=== PATIENT | male | born 2000 | race African-American/Black ===

== ENCOUNTER 2024-07-26 21:50 | Emergency (ER) | payer OTHER ==
[~2024-07-26] VITALS: Ht 170.2 cm; Wt 93.5 kg
[2024-07-27 03:36] VITALS: BP 120/57; TEMP 98.1; O2SAT 100
== END 2024-07-27 03:40 | disposition home or self-care (01) ==
LOC: M ED 21:50
DX: S93.402A Sprain of unspecified ligament of left ankle, initial encounter (principal); X50.0XXA Overexertion from strenuous movement or load, initial encounter; Z91.013 Allergy to seafood; Y92.89 Other specified places as the place of occurrence of the external cause; Y93.66 Activity, soccer; Y99.9 Unspecified external cause status